=== PATIENT | male | born 1940 | race American Indian/Alaskan Native ===

== ENCOUNTER 2016-10-08 16:29 | Inpatient (IN) | payer MEDICARE ==
[2016-10-08 16:29] VITALS: BMI 23.1
[2016-10-08] MEDS ORDERED: Sodium Chloride 0.9% 500 ML IV STA (16:58)
--- NOTE | 2016-10-08 17:02 | ED PDOC ---
Arrival/HPI - General Chief Complaint: Female Genitourinary Time Seen by Provider: 10/08/16 16:52 Historian: Patient - History of Present Illness Narrative History of Present Illness (Text): 10/08/16 16:59 Patient with past medical history of hypertension and high cholesterol, reports 2 days of dysuria, urinary frequency, and feeling unwell. Otherwise: (-) cough, (-) sore throat, (-) URI symptoms, (-) headache, (-) dizziness, (-) SOB, (-) chest pain, (-) N/V/D, (-) abdominal pain, (-) flank pain, (-) urethral discharge, (-) recent travel, (-) sick contacts. Tony Poon Past Medical History - Provider Review Nursing Documentation Reviewed: Yes - Infectious Disease Hx of Infectious Diseases: None - Cardiac Hx Pacemaker: Yes (SINCE 2003) - Neurological Hx Paralysis: No - Hematological/Oncological Hx Blood Transfusions: No Hx Blood Transfusion Reaction: No - Psychiatric Hx Depression: No Hx Emotional Abuse: No Hx Physical Abuse: No Hx Substance Use: No - Surgical History Hx Coronary Stent: Yes (x1) - Anesthesia Hx Anesthesia: Yes Hx Anesthesia Reactions: No Hx Malignant Hyperthermia: No - Suicidal Assessment Feels Threatened In Home Enviroment: No Family/Social History - Physician Review Nursing Documentation Reviewed: Yes Family/Social History: No Known Family HX Smoking Status: Light Smoker < 10 Cigarettes Daily Hx Alcohol Use: No (ABUSE([facility]OT[facility]) QUIT 5 YRS AGO) Hx Substance Use: No Allergies/Home Meds Allergies/Adverse Reactions: Allergies No Known Allergies Allergy (Verified 10/08/16 16:45) Home Medications: Home Meds Medication Instructions Recorded Confirmed Albuterol HFA [Ventolin HFA 90 1 puff IH Q6 PRN 02/03/12 10/08/16 mcg/actuation (8 g)] Albuterol Sulfate/Ipratropiu 1 ea NEB Q6 02/03/12 10/08/16 [Ipratropium [place]/Albuterol Sulfate 3 mg/3 ] Aspirin [Ecotrin] 81 mg PO QAM 02/03/12 10/08/16 Atorvastatin Calcium 20 mg PO QAM 02/03/12 10/08/16 Cholecalciferol [Vitamin D] 2,000 iu PO DAILY 02/03/12 10/08/16 Hydrochlorothiazide/Valsarta 1 tab PO QAM 02/03/12 10/08/16 [Diovan Hct 12.5 mg-160 mg] Robert Lee-3/Dha/Epa/Fish Oil [Robert [place]-3 1 tab PO DAILY 02/03/12 10/08/16 Fish Oil 1,000 mg Sfgl] Vitamin B Complex 1 cap PO DAILY 02/03/12 10/08/16 Tamsulosin [Flomax] 0.4 mg PO QPM 03/25/13 10/08/16 Calcium Citrate 630 mg PO DAILY 01/23/15 10/08/16 Flunisolide [Aerospan] 2 puff IH BID 01/23/15 10/08/16 Spectravite 1 tab PO DAILY 01/23/15 10/08/16 Tiotropium [place] Inhaler 1 inhaler INH DAILY 01/23/15 10/08/16 [Spiriva Inhalation Handihaler Device] Review of Systems - Review of Systems Constitutional: Normal, Fatigue. absent: Weight Change, Fevers ENT: Normal. absent: Hearing Changes, Tinnitus, TMJ Pain Respiratory: Normal. absent: SOB, Cough, Sputum Cardiovascular: Normal. absent: Chest Pain, Palpitations, Edema Gastrointestinal: Normal. absent: Abdominal Pain, Stool Changes, Vomiting, Appetite Changes Genitourinary Male: Normal, Dysuria, Frequency. absent: Hematuria Musculoskeletal: Normal. absent: Arthralgias, Back Pain, Neck Pain Skin: Normal. absent: Rash, Pruritis, Skin Lesions, Laceration Neurological: Normal. absent: Headache, Dizziness, Focal Weakness Physical Exam - Physical Exam Narrative Physical Exam (Text): 10/08/16 17:01 GENERAL APPEARANCE: Patient is awake, alert, oriented x 3, in no acute distress. Patient appears well, ambulating in the ER, smiling. SKIN: Warm, dry; (-) cyanosis, (-) rash. (-) Decubitus Ulcer EYES: (-) conjunctival pallor, (-) scleral icterus, (-) conjunctival hemorrhage. ENMT: Mucous membranes moist. TMs: (-) erythema. Airway patent: (-) stridor. Pharynx: (-) erythema, (-) exudate. NECK: (-) tenderness, (-) stiffness, (-) meningismus, (-) lymphadenopathy. CHEST AND RESPIRATORY: (-) accessory muscle use. Lungs: (-) rales, (-) rhonchi, (-) wheezes, (-) rub; breath sounds equal bilaterally. HEART AND CARDIOVASCULAR: (-) irregularity; (-) murmur, (-) gallop, (-) rub. ABDOMEN AND GI: Soft; (-) tenderness, (-) guarding; (-) organomegaly; (-) mass ; (-) CVA tenderness. EXTREMITIES: (-) deformity; (-) cellulitis, (-) lymphangitis; (-) subungual hemorrhage; (-) edema. NEURO AND PSYCH: Mental status as above; (-) focal findings. Vital Signs Temp Pulse Resp BP Pulse Ox 10/08/16 18:29 99.1 F 73 20 147/74 10/08/16 16:41 100.1 F H 94 H 20 137/85 96 Medical Decision Making ED Course and Treatment: 10/08/16 17:02 76 yo M with past medical history of high cholesterol and hypertension, presents with 2 day history of dysuria, urinary frequency and "not feeling well. 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 Labs reviewed, WBC is 18, lactate 2.1. UA shows (+) UTI, rocephin 1 g IV ordered. Considering the labs and that the patient has an oral T of 100.1. Code sepsis is called. Due to patient's age, and the fact that the patient is not tachycardic or hypotensive, is hemodynamically stable, 30cc/kg bolus was not given at this time. Repeat VS: T (rectal) 99.1 P 73 BP 147/74 R 20. On re-evaluation, patient is laying comfortably in bed in no acute distress. Remains awake, alert and oriented x3. Patient notified of plan for further inpatient care, which the patient agrees to. Given the opportunity to ask questions. Case d/w medical office technologist and with Dr. Stafford, agrees with plan for inpatient tele admission. EKG: SR at 69 bpm with 1st degree AVB, RBBB, (-) acute ST changes, EKG appears unchanged from prior, as read by PA. - Lab Interpretations Lab Results: 10/08/16 17:00 10/08/16 17:00 Lab Results 10/08/16 18:15: Urine Color Yellow, Urine Appearance Sl cloudy, Urine pH 7.5, Ur Specific [place] 1.015, Urine Protein Trace H, Urine Glucose (UA) Negative, Urine Ketones Negative, Urine Blood Large H, Urine Nitrate Negative, Urine Bilirubin Negative, Urine Urobilinogen 0.2, Ur Leukocyte Esterase Small H, Urine RBC Tntc, Urine WBC 15 - 20, Ur Epithelial Cells 6 - 8, Urine Bacteria Mod 10/08/16 17:00: Sodium 134, Chloride 98, Potassium 5.0, Carbon Dioxide 29, Anion Gap 12, BUN 19, Creatinine 1.5 H, Est GFR ( Amer) 55, Est GFR (Non- Af Amer) 45, Random Glucose 95, Calcium 9.9, Total Bilirubin 1.9 H, AST 62 H, ALT 29, Alkaline Phosphatase 107, Total Protein 7.9, Albumin 4.3, Globulin 3.7, Albumin/Globulin Ratio 1.2 10/08/16 17:00: pO2 30, VBG pH 7.37, VBG pCO2 53.0, VBG HCO3 30.6 H, VBG Total CO2 32.2 H, VBG O2 Sat (Calc) 55.3, VBG Base Excess 4.0 H, VBG Potassium 4.3, Sodium 135.0, Chloride 101.0, Glucose 90, Lactate 2.1, FiO2 21.0, Venous Blood Potassium 4.3 10/08/16 17:00: WBC 18.8 H D, RBC 5.15, Hgb 12.6 L, Hct 36.2 L, MCV 70.3 L, MCH 24.5 L, MCHC 34.8, RDW 15.3 H, Plt Count 200, MPV 9.5, Gran % 83.0 H, Lymph % ( Auto) 11.2 L, [place] % (Auto) 5.6, Eos % (Auto) 0.1 L, Baso % (Auto) 0.1, Gran # 15.62 H, Lymph # 2.1, [place] # 1.1 H, Eos # 0.0, Baso # 0.02 - RAD Interpretation Radiology Orders: 10/08/16 17:50 CHEST TWO VIEWS (PA/LAT) [RAD] Stat - Medication Orders Current Medication Orders: Acetaminophen (Tylenol 325mg Tab) 650 mg PO Q6H PRN PRN Reason: Pain, Mild (1-3) Albuterol/Ipratropium (Duoneb 3 Mg/0.5 Mg (3 Ml) Ud) 3 ml IH Q2H PRN PRN Reason: Shortness of Breath Stop: 10/09/16 00:31 Aspirin (Ecotrin) 81 mg PO QAM [facility] Atorvastatin Calcium (Lipitor) 20 mg PO HS [facility] Cholecalciferol (Vitamin D) 2,000 iu PO DAILY [facility] Heparin Sodium (Porcine) (Heparin) 5,000 units SC Q12 [facility]Y PRN Reason: Protocol Sodium Chloride (Sodium Chloride 0.9%) 1,000 mls @ 100 mls/hr IV .Q10H [facility] Ceftriaxone Sodium (Rocephin 1 Gram Ivpb) 1 gm in 100 mls @ 100 mls/hr IVPB DAILY [facility]Y PRN Reason: Protocol Morphine Sulfate (Morphine) 2 mg IVP Q4 PRN PRN Reason: Pain, severe (8-10) Non-Formulary Medication (Calcium Citrate [Calcium Citrate]) [address] [facility] Non-Formulary Medication (Flunisolide [Aerospan]) 2 puff IH BID [facility] Non-Formulary Medication (Spectravite) [address] [facility] Whysk-2-Uxgi Ethyl Esters (Lovaza) [address] [facility] Pantoprazole Sodium (Protonix Ec Tab) 40 mg PO DAILY [facility] Tamsulosin HCl (Flomax) 0.[address] [facility] Tiotropium [place] (Spiriva) 18 mcg INH DAILY [facility] Vitamin B Complex/Vit C/Folic Acid (Nephro-Tenisha) 1 tab PO DAILY [facility] Discontinued Medications Sodium Chloride (Sodium Chloride 0.9%) 500 mls @ 500 mls/hr IV .Q1H STA Stop: 10/08/16 17:57 Last Admin: 10/08/16 17:27 Dose: 500 mls/hr Ceftriaxone Sodium (Rocephin 1 Gram Ivpb) 1 g in 100 mls @ 200 mls/hr IVPB STAT STA PRN Reason: Protocol Stop: 10/08/16 19:43 Last Admin: 10/08/16 19:31 Dose: 200 mls/hr - PA / [employer] / Resident Statement / has reviewed & agrees with the documentation as recorded. Disposition/Present on Arrival - Present on Arrival Any Indicators Present on Arrival: No History of DVT/PE: No History of Uncontrolled Diabetes: No Urinary Catheter: No History of Decub. Ulcer: No History Surgical Site Infection Following: None - Disposition Have Diagnosis and Disposition been Completed?: Yes Diagnosis: Sepsis, UTI (urinary tract infection) Disposition: HOSPITALIZED Disposition Time: 19:00 Patient Plan: Telemetry (admission) Patient Problems: Current Active Problems Problem Status Onset Sepsis Acute UTI (urinary tract infection) Acute Condition: STABLE
[2016-10-08 17:33] LABS: ADD MANUAL DIFF? NO
[2016-10-08 17:42] LABS: BASO # 0.02 K/mm3 (0.0-2.0); BASO % 0.1 % (0.0-3.0); EOS % 0.1 % (1.5-5.0); GRAN # 15.62 (1.4-6.5); HEMATOCRIT 36.2 % (42.0-52.0); LYMPH # 2.1 (1.2-3.4); LYMPH % 11.2 % (22.0-35.0); MEAN CELL VOLUME 70.3 fL (80.0-105.0); MEAN CORPUSCULAR HEMOGLOBIN 24.5 pg (25.0-35.0); MEAN CORPUSCULAR HGB CONC 34.8 g/dl (31.0-37.0); MEAN PLATELET VOLUME 9.5 fl (7.0-11.0); MONO # 1.1 (0.1-0.6); MONO % 5.6 % (1.0-6.0); PLATELET COUNT 200 10^3/uL (120.0-450.0); RED CELL DISTRIBUTION WIDTH 15.3 % (11.5-14.5); WHITE BLOOD COUNT 18.8 10^3/ul (4.5-11.0)
[2016-10-08 17:48] LABS: VENOUS BLOOD PH 7.37 (7.32-7.43)
[2016-10-08 17:49] LABS: ALB/GLOB RATIO 1.2 (1.1-1.8); BILIRUBIN,TOTAL 1.9 mg/dL (0.2-1.3); CALCIUM 9.9 mg/dL (8.4-10.5); TOTAL PROTEIN 7.9 g/dL (5.8-8.3)
[2016-10-08 19:00] LABS: PH,URINE 7.5 (4.7-8.0); URINE BILIRUBIN NEGATIVE (NEGATIVE); URINE BLOOD LARGE (NEGATIVE); URINE GLUCOSE (UA) NEGATIVE (NEGATIVE); URINE KETONE NEGATIVE (NEGATIVE); URINE LEUKOCYTE ESTERASE SMALL Leu/uL (NEGATIVE); URINE PROTEIN TRACE mg/dL (<30 mg/dL); URINE UROBILINOGEN 0.2 E.U./dL (<1 E.U./dL)
[2016-10-08 19:07] LABS: URINE APPEARANCE SL CLOUDY (CLEAR); URINE COLOR YELLOW (YELLOW)
[2016-10-08] MEDS ORDERED: cefTRIAXone 1 gm 1 G/100 ML BAG IVPB STA (19:14)
[2016-10-08 19:22] LABS: URINE BACTERIA MOD (NEG); URINE RBC TNTC /hpf (0-2); URINE WBC 15 - 20 /hpf (0-6)
[2016-10-08] MEDS ORDERED: Albuterol-Ipratrop 3 mg / 0.5 (3 ml) UD IH PRN (20:23)
[2016-10-08] MEDS ORDERED: Morphine 2 mg/ml ISec IVP PRN (20:25)
[2016-10-08] MEDS ORDERED: Sodium Chloride 0.9% 1,000 ML IV SCH (20:30)
[2016-10-08 20:34] LABS: VENOUS BLOOD GAS BASE EXCESS 4.1 mmol/L (0.0-2.0)
--- NOTE | 2016-10-08 21:31 | CP.PCM.HP ---
History of Present Illness - History of Present Illness History of Present Illness: History of Present Illness: The patient is a 76 year old man with a history of hypertension , BPH, dyslipidemia, COPD and coronary artery disease (s/p CABG, PCI and pacemaker in 2003), who presents with 2 days of dysuria, increased urinary frequency and generalized weakness and malaise. He denies fevers, chills, chest pain, shortness of breath, hematuria, cough or altered mental status. On ED labs , the patient was found to have a temperature of 100.1, a dirty UA, WBC=18 and lactic acid of 2.1. He has remained hemodynamically stable since arrival to the ED. Home Medications: Albuterol HFA 1 puff IH Q6hrs PRN Lipitor 20mg q daily ASA 81 mg q daily Aerospan 2puffs IH bid Vitamin D supplements Calcium Citrate 630mg po daily Diovan 12.5mg-160mg po daily Flomax 0.4mg po daily Spectravite 1 tab po daily Vit B complex 1 cap po daily Tiotropium 1 puff IH daily Allergies: NKDA Past Medical History: Per HPI Past Surgical History: CABG PCI Pacemaker placement Family History: Non-contributory Social History: Has smoked 1-1/2 PPD since 17 years old Previously was a heavy alcohol drinker but quit several years ago Denies illicit drug use Review of Systems: 14 bodily systems reviewed and found to be negative except as noted in the HPI -Patient also reports 2 days of constipation Present on Admission - Present on Admission Any Indicators Present on Admission: No Past Patient History - Infectious Disease Hx of Infectious Diseases: None - Past Social History Smoking Status: Light Smoker < 10 Cigarettes Daily - CARDIAC Hx Pacemaker: Yes (SINCE 2003) - NEUROLOGICAL Hx Paralysis: No - HEMATOLOGICAL/ONCOLOGICAL Hx Blood Transfusions: No Hx Blood Transfusion Reaction: No - PSYCHIATRIC Hx Depression: No Hx Emotional Abuse: No Hx Physical Abuse: No Hx Substance Use: No - SURGICAL HISTORY Hx Coronary Stent: Yes (x1) - ANESTHESIA Hx Anesthesia: Yes Hx Anesthesia Reactions: No Hx Malignant Hyperthermia: No Meds Allergies/Adverse Reactions: Allergies Allergy/AdvReac Type Severity Reaction Status Date / Time No Known Allergies Allergy Verified 10/08/16 16:45 Physical Exam - Constitutional Appears: Well - Head Exam Head Exam: ATRAUMATIC, NORMAL INSPECTION, NORMOCEPHALIC - Eye Exam Eye Exam: EOMI, Normal appearance, PERRL - ENT Exam ENT Exam: Mucous Membranes Dry - Neck Exam Neck exam: Positive for: Normal Inspection - Respiratory Exam Respiratory Exam: Clear to Auscultation Bilateral, NORMAL BREATHING PATTERN - Cardiovascular Exam Cardiovascular Exam: REGULAR RHYTHM - GI/Abdominal Exam GI & Abdominal Exam: Normal Bowel Sounds, Soft. absent: Tenderness - Rectal Exam Rectal Exam: Deferred - Extremities Exam Extremities exam: Positive for: normal inspection - Neurological Exam Neurological exam: Alert, CN II-XII Intact, Normal Gait, Oriented x3, Reflexes Normal Results - Vital Signs Recent Vital Signs: Last Vital Signs Temp 99.1 F 10/08/16 18:29 Pulse 73 10/08/16 18:29 Resp 20 10/08/16 18:29 BP 147/74 10/08/16 18:29 Pulse Ox 96 10/08/16 16:41 - Labs Result Diagrams: 10/08/16 17:00 10/08/16 17:00 Labs: Laboratory Results - last 24 hr 10/08/16 20:05 pO2 39 VBG pH 7.40 VBG pCO2 48.0 VBG HCO3 29.7 H VBG Total CO2 31.2 H VBG O2 Sat (Calc) 78.3 H VBG Base Excess 4.1 H VBG Potassium 4.2 Sodium 134.0 Chloride 100.0 Glucose 93 Lactate 1.4 FiO2 21.0 Venous Blood Potassium 4.2 Assessment & Plan - Assessment and Plan (Free Text) Plan: Assessment and Plan: The patient is a 76 year old man with a history of hypertension , BPH, dyslipidemia, COPD and coronary artery disease (s/p CABG, PCI and pacemaker), who presents with sepsis due to a UTI. 1. Sepsis: -due to UTI -hemodynamically stable -will start IVFs at 100cc/hr given cardiac history -empiric IV Ceftriaxone -follow-up blood and urine cultures -will order procalcitonin and repeat lactic acid 2. Urinary Tract Infection: -empiric IV Ceftriaxone -follow-up blood and urine cultures -NS at 100cc/hr 3. Acute Kidney Injury: -likely due to intravascular depletion -will hydrate with NS at 100cc/hr -recheck BMP with AM labs 4. Microcytic Anemia: -will order iron panel and ferritin with AM labs 5. Hypertension: -will hold all BP meds overnight since pt is septic 6. Coronary Artery Disease (s/p CABG, pacemaker and PCI): -continue home maintenance meds of lipitor and ASA -as stated above, will hold all BP meds overnight 7. COPD: -continue home maintenance inhalers -PRN Duo-nebs as needed -O2 via NC as needed 8. Dyslipidemia: -continue Lipitor 9. BPH: -continue Flomax DVT PPx: SCDs and SC Heparin GI PPx: Protonix
[2016-10-09] MEDS ORDERED: Albuterol-Ipratrop 3 mg / 0.5 (3 ml) UD IH PRN (01:02)
[2016-10-09 07:57] LABS: ADD MANUAL DIFF? NO
[2016-10-09 08:05] LABS: BASO # 0.02 K/mm3 (0.0-2.0); BASO % 0.1 % (0.0-3.0); EOS # 0.1 (0.0-0.7); EOS % 0.3 % (1.5-5.0); GRAN # 12.02 (1.4-6.5); GRAN % 82.9 % (50.0-68.0); HEMATOCRIT 31.6 % (42.0-52.0); LYMPH # 1.4 (1.2-3.4); LYMPH % 9.5 % (22.0-35.0); MEAN CELL VOLUME 69.9 fL (80.0-105.0); MEAN CORPUSCULAR HEMOGLOBIN 24.3 pg (25.0-35.0); MEAN CORPUSCULAR HGB CONC 34.8 g/dl (31.0-37.0); MEAN PLATELET VOLUME 9.5 fl (7.0-11.0); MONO % 7.2 % (1.0-6.0); PLATELET COUNT 184 10^3/uL (120.0-450.0); RED CELL DISTRIBUTION WIDTH 15.1 % (11.5-14.5); WHITE BLOOD COUNT 14.5 10^3/ul (4.5-11.0)
[2016-10-09 08:19] LABS: ALB/GLOB RATIO 1.1 (1.1-1.8); ALKALINE PHOSPHATASE 91 U/L (38-133); ALT/SGPT 29 U/L (7-56); AST/SGOT 35 U/L (15-59); BILIRUBIN,TOTAL 0.8 mg/dL (0.2-1.3); BLOOD UREA NITROGEN 20 mg/dL (7-21); CALCIUM 8.8 mg/dL (8.4-10.5); CARBON DIOXIDE 26 mmol/L (21-33); CHLORIDE 101 mmol/L (98-107); GFR AFRICAN-AMERICAN > 60; GLUCOSE,RANDOM 74 mg/dL (70-110); MAGNESIUM 1.7 mg/dL (1.7-2.2); POTASSIUM 4.1 mmol/L (3.6-5.0); SODIUM 133 mmol/L (132-148); TOTAL PROTEIN 6.5 g/dL (5.8-8.3)
--- NOTE | 2016-10-09 08:20 | RAD ---
HISTORY: malaise COMPARISON: No prior. TECHNIQUE: Chest PA and lateral FINDINGS: LUNGS: No active pulmonary disease. PLEURA: No significant pleural effusion identified. No pneumothorax apparent. CARDIOVASCULAR: Normal. Pacemaker and leads in place. OSSEOUS STRUCTURES: No significant abnormalities. VISUALIZED UPPER ABDOMEN: Normal. OTHER FINDINGS: None. IMPRESSION: No active disease.
[2016-10-09 08:27] LABS: IRON 12 ug/dL (45-180)
[2016-10-09] MEDS ORDERED: Sodium Chloride 0.9% 1,000 ML IV SCH (08:59)
[2016-10-09] MEDS: Pantoprazole 40 mg EC Tab PO SCH (09:55)
[2016-10-09] MEDS: Multivitamin Vitamin B Complex (Nephro-Vite) Tab PO SCH (09:55)
[2016-10-09] MEDS: cefTRIAXone 1 gm 1 GM/100 ML BAG IVPB SCH (09:56)
[2016-10-09] MEDS: Omega-3-Acid Ethyl Esters 1 GM Cap PO SCH (09:58)
[2016-10-09] MEDS: CALCIUM CITRATE PO SCH (10:02)
[2016-10-09] MEDS: FLUNISOLIDE IH SCH ×2 (10:03→18:21)
[2016-10-09] MEDS: SPECTRAVITE PO SCH (10:03)
[2016-10-09] MEDS: Tiotropium 18 mcg Cap For Inhalation INH SCH (15:12)
--- NOTE | 2016-10-09 18:29 | CP.PCM.PN ---
Addendum entered and electronically signed by Adrianna Erazo DO 10/09/16 19:22: bladder U/S ordered due to hematuria/dysuria Addendum entered and electronically signed by Adrianna Erazo DO 10/09/16 19:20: NS IV discontinued due to increasing blood pressure. Original Note: <Adrianna Erazo - Last Filed: 10/09/16 19:13> Subjective - Date & Time of Evaluation Date of Evaluation: 10/09/16 Time of Evaluation: 11:00 - Subjective Subjective: Pt seen and evaluated at bedside. Denies fever, REAVES and continues to have dysuria. Afebrile overnight with Tmax of 100.1, his initial presenting temperature. Objective - Vital Signs/Intake and Output Vital Signs (last 24 hours): Temp Pulse Resp BP Pulse Ox 99.2 F 68 16 178/88 H 98 10/09/16 18:04 10/09/16 18:04 10/09/16 18:04 10/09/16 18:04 10/09/16 05:56 Intake and Output: 10/09/16 10/09/16 06:59 18:59 Intake Total 1400 Output Total 1500 Balance -100 - Medications Medications: Current Medications Acetaminophen (Tylenol 325mg Tab) 650 mg PO Q6H PRN PRN Reason: Pain, Mild (1-3) Albuterol/Ipratropium (Duoneb 3 Mg/0.5 Mg (3 Ml) Ud) 3 ml IH Q2H PRN PRN Reason: Shortness of Breath Aspirin (Ecotrin) 81 mg PO QAM ON LICENSE OF [facility] Last Admin: 10/09/16 09:55 Dose: 81 mg Atorvastatin Calcium (Lipitor) 20 mg PO HS ON LICENSE OF [facility] Cholecalciferol (Vitamin D) 2,000 iu PO DAILY ON LICENSE OF [facility] Last Admin: 10/09/16 09:55 Dose: 2,000 iu Heparin Sodium (Porcine) (Heparin) 5,000 units SC Q12 [facility]Y PRN Reason: Protocol Last Admin: 10/08/16 23:25 Dose: 5,000 units Ceftriaxone Sodium (Rocephin 1 Gram Ivpb) 1 gm in 100 mls @ 100 mls/hr IVPB DAILY ON [facility] OF [facility] PRN Reason: Protocol Last Admin: 10/09/16 09:56 Dose: 100 mls/hr Sodium Chloride (Sodium Chloride 0.9%) 1,000 mls @ 75 mls/hr IV [id number] ON LICENSE OF [facility] Last Admin: 10/09/16 09:56 Dose: 75 mls/hr Morphine Sulfate (Morphine) 2 mg IVP Q4 PRN PRN Reason: Pain, severe (8-10) Non-Formulary Medication (Calcium Citrate [Calcium Citrate]) 630 mg PO DAILY ON [facility] OF [facility] Last Admin: 10/09/16 10:02 Dose: Not Given Non-Formulary Medication (Flunisolide [Aerospan]) 2 puff IH BID ON LICENSE OF [facility] Last Admin: 10/09/16 18:21 Dose: Not Given Non-Formulary Medication (Spectravite) 1 tab PO DAILY ON [facility] OF [facility] Last Admin: 10/09/16 10:03 Dose: Not Given Oxxgz-[id number] Ethyl Esters (Lovaza) 1 gm PO DAILY ON [facility] Last Admin: 10/09/16 09:58 Dose: 1 gm Pantoprazole Sodium (Protonix Ec Tab) 40 mg PO DAILY ON [facility] OF [facility] Last Admin: 10/09/16 09:55 Dose: 40 mg Tamsulosin HCl (Flomax) 0.4 mg PO QPM ON LICENSE OF [facility] Last Admin: 10/09/16 17:25 Dose: 0.4 mg Tiotropium [place] (Spiriva) 18 mcg INH DAILY ON LICENSE OF [facility] Last Admin: 10/09/16 15:12 Dose: 18 mcg Vitamin B Complex/Vit C/Folic Acid (Nephro-Tenisha) 1 tab PO DAILY ON LICENSE OF [facility] Last Admin: 10/09/16 09:55 Dose: 1 tab - Labs Labs: 10/09/16 07:54 10/09/16 07:54 - Additional Findings Additional findings: - Constitutional Appears: Well, Non-toxic - Head Exam Head Exam: ATRAUMATIC, NORMOCEPHALIC - Eye Exam Eye Exam: EOMI, PERRL - ENT Exam ENT Exam: Mucous Membranes Dry, normal external ear exam - Respiratory Exam Respiratory Exam: Clear to Auscultation Bilateral, NORMAL BREATHING PATTERN - Cardiovascular Exam Cardiovascular Exam: REGULAR RHYTHM, +S1, +S2 - External Exam External Exam: no lesions, no erythema - GI/Abdominal Exam GI & Abdominal Exam: Normal Bowel Sounds, Soft. absent: Tenderness - Extremities Exam Extremities exam: Positive for: normal inspection, pedal pulses appreciated - Neurological Exam Neurological exam: Alert, Oriented x3 Assessment and Plan - Assessment and Plan (Free Text) Plan: 76 year old man with a history of hypertension, BPH, dyslipidemia, COPD and coronary artery disease (s/p CABG, PCI and pacemaker), who presents with sepsis due to a UTI. Sepsis 2/2 UTI -hemodynamically stable -IVFs at 60 cc/hr given cardiac history -empiric IV Ceftriaxone -blood cx neg at 24 hrs and urine cx pending with G- rods -procalcitonin neg (.39) and repeat lactic acid downtrend and wnl (2.1-->1.4) 2. Urinary Tract Infection: -empiric IV Ceftriaxone blood cx neg at 24 hrs and urine cx pending with G- rods -NS at 60cc/hr 3. Acute Kidney Injury: -likely due to intravascular depletion -will hydrate with NS at 60cc/hr -recheck BMP with AM labs 4. Microcytic Anemia: -anemia of chronic disease, Fe 12, tibc 254, %sat 5,and ferritin 116. 5. Hypertension: 6. Coronary Artery Disease (s/p CABG, pacemaker and PCI): -continue home maintenance meds of lipitor and ASA restarting home valsartan 160 qd next am 7. COPD: -continue home maintenance inhalers -PRN Duo-nebs as needed -O2 via NC as needed 8. Dyslipidemia: continue Lipitor 9. BPH: continue Flomax DVT PPx: SCDs and SC Heparin , GI PPx: Protonix <Meera Khalil - Last Filed: 10/10/16 17:47> Objective - Vital Signs/Intake and Output Vital Signs (last 24 hours): Temp Pulse Resp BP Pulse Ox 98.6 F 91 H 18 121/79 98 10/10/16 16:00 10/10/16 16:00 10/10/16 16:00 10/10/16 16:00 10/10/16 16:00 Intake and Output: 10/10/16 10/10/16 06:59 18:59 Intake Total 700 Output Total 1974 300 Balance -1974 - Medications Medications: Current Medications Acetaminophen (Tylenol 325mg Tab) 650 mg PO Q6H PRN PRN Reason: Pain, Mild (1-3) Albuterol/Ipratropium (Duoneb 3 Mg/0.5 Mg (3 Ml) Ud) 3 ml IH Q2H PRN PRN Reason: Shortness of Breath Aspirin (Ecotrin) 81 mg PO QAM ON [facility] OF [facility] Last Admin: 10/10/16 11:38 Dose: 81 mg Atorvastatin Calcium (Lipitor) 20 mg PO HS ON [facility] Last Admin: 10/09/16 21:43 Dose: 20 mg Cholecalciferol (Vitamin D) 2,000 iu PO DAILY ON [facility] OF [facility] Last Admin: 10/10/16 11:38 Dose: 2,000 iu Ferrous Sulfate (Feosol) 324 mg PO TID ON LICENSE OF [facility] Last Admin: 10/10/16 11:38 Dose: 324 mg Heparin Sodium (Porcine) (Heparin) 5,000 units SC Q12 ON LICENSE OF [facility] PRN Reason: Protocol Last Admin: 10/08/16 23:25 Dose: 5,000 units Ceftriaxone Sodium (Rocephin 1 Gram Ivpb) 1 gm in 100 mls @ 100 mls/hr IVPB DAILY ON [facility] PRN Reason: Protocol Last Admin: 10/09/16 09:56 Dose: 100 mls/hr Losartan Potassium (Cozaar) 100 mg PO DAILY ON [facility] Last Admin: 10/10/16 11:37 Dose: 100 mg Morphine Sulfate (Morphine) 2 mg IVP Q4 PRN PRN Reason: Pain, severe (8-10) Non-Formulary Medication (Calcium Citrate [Calcium Citrate]) 630 mg PO DAILY ON [facility] Last Admin: 10/10/16 10:00 Dose: Not Given Non-Formulary Medication (Flunisolide [Aerospan]) 2 puff IH BID ON LICENSE OF [facility] Last Admin: 10/10/16 10:00 Dose: Not Given Non-Formulary Medication (Spectravite) 1 tab PO DAILY ON [facility] Last Admin: 10/10/16 10:00 Dose: Not Given Foxap-1-Qnhm Ethyl Esters (Lovaza) 1 gm PO DAILY ON [facility] Last Admin: 10/09/16 09:58 Dose: 1 gm Pantoprazole Sodium (Protonix Ec Tab) 40 mg PO DAILY ON [facility] Last Admin: 10/10/16 10:00 Dose: 40 mg Tamsulosin HCl (Flomax) 0.4 mg PO QPM ON LICENSE OF [facility] Last Admin: 10/09/16 17:25 Dose: 0.4 mg Tiotropium [place] (Spiriva) 18 mcg INH DAILY ON [facility] OF [facility] Last Admin: 10/09/16 15:12 Dose: 18 mcg Vitamin B Complex/Vit C/Folic Acid (Nephro-Tenisha) 1 tab PO DAILY ON [facility] OF [facility] Last Admin: 10/10/16 10:00 Dose: 1 tab - Labs Labs: 10/10/16 07:00 10/10/16 07:00 Attending/Attestation - Attestation I have personally seen and examined this patient.: Yes I have fully participated in the care of the patient.: Yes I have reviewed all pertinent clinical information, including history, physical exam and plan: Yes Notes (Text): 10/10/16 17:46 Patient seen and examined at bedside with the resident. Labs, vitals, notes reviewed. Denies any new complaints. Urology consult requested for mild hematuria. Continue IV antibiotics for UTI. Reviewed and agree with the plan of care outlined above by the resident
--- NOTE | 2016-10-09 18:53 | CARD ---
APPROVED REPORT EKG Measurement Heart [id number] MD 322P [id number] <Conclusion> Sinus rhythm with 1st degree AV block Right bundle branch block Left anterior fascicular block Bifascicular block Anteroseptal infarct, age undetermined Abnormal ECG
[2016-10-10 07:24] LABS: ADD MANUAL DIFF? NO
[2016-10-10 07:34] LABS: BASO # 0.01 K/mm3 (0.0-2.0); BASO % 0.1 % (0.0-3.0); EOS # 0.1 (0.0-0.7); EOS % 0.7 % (1.5-5.0); GRAN # 5.37 (1.4-6.5); HEMATOCRIT 31.1 % (42.0-52.0); LYMPH # 1.2 (1.2-3.4); LYMPH % 16.7 % (22.0-35.0); MEAN CELL VOLUME 69.6 fL (80.0-105.0); MEAN CORPUSCULAR HEMOGLOBIN 23.9 pg (25.0-35.0); MEAN CORPUSCULAR HGB CONC 34.4 g/dl (31.0-37.0); MEAN PLATELET VOLUME 9.4 fl (7.0-11.0); MONO # 0.5 (0.1-0.6); MONO % 7.5 % (1.0-6.0); PLATELET COUNT 188 10^3/uL (120.0-450.0); RED CELL DISTRIBUTION WIDTH 14.8 % (11.5-14.5); WHITE BLOOD COUNT 7.2 10^3/ul (4.5-11.0)
[2016-10-10 07:45] LABS: BILIRUBIN,TOTAL 0.7 mg/dL (0.2-1.3); CALCIUM 8.8 mg/dL (8.4-10.5); MAGNESIUM 1.7 mg/dL (1.7-2.2); PHOSPHOROUS 2.7 mg/dL (2.5-4.5); POTASSIUM 4.1 mmol/L (3.6-5.0); TOTAL PROTEIN 6.4 g/dL (5.8-8.3)
[2016-10-10] MEDS: SPECTRAVITE PO SCH (10:00)
[2016-10-10] MEDS: CALCIUM CITRATE PO SCH (10:00)
[2016-10-10] MEDS: Pantoprazole 40 mg EC Tab PO SCH (10:00)
[2016-10-10] MEDS: Multivitamin Vitamin B Complex (Nephro-Vite) Tab PO SCH (10:00)
[2016-10-10] MEDS: Omega-3-Acid Ethyl Esters 1 GM Cap PO SCH (10:00)
[2016-10-10] MEDS: cefTRIAXone 1 gm 1 GM/100 ML BAG IVPB SCH (10:00)
[2016-10-10] MEDS: FLUNISOLIDE IH SCH (10:00)
[2016-10-10] MEDS: Tiotropium 18 mcg Cap For Inhalation INH SCH (10:00)
--- NOTE | 2016-10-10 11:19 | CP.PCM.PN ---
<Steve Benz - Last Filed: 10/10/16 11:21> Subjective - Date & Time of Evaluation Date of Evaluation: 10/10/16 Time of Evaluation: 11:00 - Subjective Subjective: Medicine progress note. Attending: Dr. Maravilla Pt seen and examined at bedside. No acute distress. No events overnight. Pt still having some hematuria, dysuria. Urology workup in progress. Bladder scan pending. No fevers, chills, vomiting, diarrhea. Objective - Vital Signs/Intake and Output Vital Signs (last 24 hours): Temp Pulse Resp BP Pulse Ox 99.8 F H 63 19 137/71 95 10/10/16 08:13 10/10/16 08:13 10/10/16 08:13 10/10/16 08:13 10/10/16 08:13 Intake and Output: 10/10/16 10/10/16 06:59 18:59 Output Total 1975 Balance -1974 - Medications Medications: Current Medications Acetaminophen (Tylenol 325mg Tab) 650 mg PO Q6H PRN PRN Reason: Pain, Mild (1-3) Albuterol/Ipratropium (Duoneb 3 Mg/0.5 Mg (3 Ml) Ud) 3 ml IH Q2H PRN PRN Reason: Shortness of Breath Aspirin (Ecotrin) 81 mg PO QAM [facility] Last Admin: 10/09/16 09:55 Dose: 81 mg Atorvastatin Calcium (Lipitor) 20 mg PO HS [facility] Last Admin: 10/09/16 21:43 Dose: 20 mg Cholecalciferol (Vitamin D) 2,000 iu PO DAILY [facility] Last Admin: 10/09/16 09:55 Dose: 2,000 iu Ferrous Sulfate (Feosol) 324 mg PO TID [facility] Heparin Sodium (Porcine) (Heparin) 5,000 units SC Q12 CURLY PRN Reason: Protocol Last Admin: 10/08/16 23:25 Dose: 5,000 units Ceftriaxone Sodium (Rocephin 1 Gram Ivpb) 1 gm in 100 mls @ 100 mls/hr IVPB DAILY [facility] PRN Reason: Protocol Last Admin: 10/09/16 09:56 Dose: 100 mls/hr Losartan Potassium (Cozaar) 100 mg PO DAILY [facility] Morphine Sulfate (Morphine) 2 mg IVP Q4 PRN PRN Reason: Pain, severe (8-10) Non-Formulary Medication (Calcium Citrate [Calcium Citrate]) 630 mg PO DAILY [facility] Last Admin: 10/09/16 10:02 Dose: Not Given Non-Formulary Medication (Flunisolide [Aerospan]) 2 puff IH BID [facility] Last Admin: 10/09/16 18:21 Dose: Not Given Non-Formulary Medication (Spectravite) 1 tab PO DAILY [facility] Last Admin: 10/09/16 10:03 Dose: Not Given Hepiy-3-Tmoo Ethyl Esters (Lovaza) 1 gm PO DAILY [facility] Last Admin: 10/09/16 09:58 Dose: 1 gm Pantoprazole Sodium (Protonix Ec Tab) 40 mg PO DAILY [facility] Last Admin: 10/09/16 09:55 Dose: 40 mg Tamsulosin HCl (Flomax) 0.4 mg PO QPM [facility] Last Admin: 10/09/16 17:25 Dose: 0.4 mg Tiotropium Hutchinson (Spiriva) 18 mcg INH DAILY [facility] Last Admin: 10/09/16 15:12 Dose: 18 mcg Vitamin B Complex/Vit C/Folic Acid (Nephro-Tenisha) 1 tab PO DAILY [facility] Last Admin: 10/09/16 09:55 Dose: 1 tab - Labs Labs: 10/10/16 07:00 10/10/16 07:00 - Constitutional Appears: Non-toxic, No Acute Distress - Head Exam Head Exam: ATRAUMATIC, NORMAL INSPECTION, NORMOCEPHALIC - Eye Exam Eye Exam: EOMI - ENT Exam ENT Exam: Mucous Membranes Moist - Neck Exam Neck Exam: Full ROM, Normal Inspection - Respiratory Exam Respiratory Exam: NORMAL BREATHING PATTERN. absent: Respiratory Distress - Cardiovascular Exam Cardiovascular Exam: +S1, +S2 - GI/Abdominal Exam GI & Abdominal Exam: Soft, Normal Bowel Sounds. absent: Tenderness - Extremities Exam Extremities Exam: Full ROM, Normal Inspection - Neurological Exam Neurological Exam: Alert, Awake, Oriented x3 - Psychiatric Exam Psychiatric exam: Normal Affect, Normal Mood - Skin Skin Exam: Dry, Intact, Normal Color, Warm Assessment and Plan - Assessment and Plan (Free Text) Assessment: 76 year old man with a history of hypertension, BPH, dyslipidemia, COPD and coronary artery disease (s/p CABG, PCI and pacemaker), who presents with sepsis due to a UTI. Sepsis 2/2 UTI -hemodynamically stable -IVFs at 60 cc/hr given cardiac history >> stopped -empiric IV Ceftriaxone 1 g daily -blood cx neg at 24 hrs and urine cx showing E coli -procalcitonin neg (.39) and repeat lactic acid downtrend and wnl (2.1-->1.4) -urology workup in progress -bladder scan pending 2. Urinary Tract Infection: -empiric IV Ceftriaxone blood cx neg at 24 hrs and urine cx e coli -NS at 60cc/hr>> stopped 3. Acute Kidney Injury: -likely due to intravascular depletion -recheck BMP with AM labs 4. Microcytic Anemia: -anemia of chronic disease, Fe 12, tibc 254, %sat 5,and ferritin 116. -continue feosol 324 tid po 5. Hypertension: -continue losartan 100 daily 6. Coronary Artery Disease (s/p CABG, pacemaker and PCI): -continue home maintenance meds of lipitor and ASA -continue losartan 100 daily 7. COPD: -continue home maintenance inhalers -PRN Duo-nebs as needed -O2 via NC as needed 8. Dyslipidemia: continue Lipitor 9. BPH: continue Flomax DVT PPx: SCDs and SC Heparin , GI PPx: Protonix <Troy Maravilla - Last Filed: 10/11/16 09:04> Objective - Vital Signs/Intake and Output Vital Signs (last 24 hours): Temp Pulse Resp BP Pulse Ox 98.6 F 91 H 18 121/79 98 10/10/16 16:00 10/10/16 16:00 10/10/16 16:00 10/10/16 16:00 10/10/16 16:00 - Labs Labs: 10/10/16 07:00 10/10/16 07:00 Attending/Attestation - Attestation I have personally seen and examined this patient.: Yes I have fully participated in the care of the patient.: Yes I have reviewed all pertinent clinical information, including history, physical exam and plan: Yes Notes (Text): 10/10/16 76 year old male with past medical history of hypertension, BPH, COPD and CAD who presented with sepsis secondary to UTI. He complained of dysuria and hematuria. He was started on antibiotics with improvement of symptoms. He had mild LUIS ARMANDO which improved with fluids. He was seen by urology who ordered to d/c micky and ordered for renal ultrasound which showed simple renal cyst. UCx grew E coli. He was found to have mild microcytic iron deficiency anemia and started on iron supplements. Patient will be discharged home to follow up with pmd and urologist. Continue with po antibiotics as prescribed. Recommend to repeat UA and cbc 1 week after completing antibiotics for UTI. If persistent hematuria follow up with urology. If persistent anemia without hematuria consider outpatient GI evaluation. Troy Maravilla MD Hospitalist.
--- NOTE | 2016-10-10 13:10 | CON ---
DATE: 10/10/2016 CHIEF COMPLAINT: Urinary tract infection. HISTORY OF PRESENT ILLNESS: A 76-year-old man who complained of burning dysuria, fever, chills, temp erature of 100.1. His urine grew an E. coli. He was unable to void in the ER so a Sanches catheter wa s placed. There is no record of the amount of pain. According to the patient, he voided well prior to coming to the ER with voiding good stream and had some type of urologic procedure approximately 3 years ago. He was not on any BPH meds. PAST MEDICAL HISTORY: Significant for COPD. He has a pacemaker in place. MEDICATIONS: He takes Diovan along with his inhalers. ALLERGIES: He has no allergies. He has had a prior CABG as well. SOCIAL HISTORY: He still smokes approximately a pack per day for almost 55-60 years. He no longer d rinks, was a heavy alcohol consumer in the past. REVIEW OF SYMPTOMS: Currently no symptoms referable to the head, eyes, ears, nose or throat. No car diac, respiratory symptoms. Some mild constipation. No dermatologic, psychiatric symptoms. No musc uloskeletal symptoms. PHYSICAL EXAMINATION: VITAL SIGNS: Shows him to be with a temperature of 99.8, pulse 63, blood pressure 137/71, respiratio ns 19. HEENT: Normocephalic, sclera clear, conjunctiva noninjected. ABDOMEN: Soft. No CVA pain. No hepatosplenomegaly, rebound or guarding. GENITALIA: Penis, testicle, cord, epididymis all normal. RECTAL: Shows the prostate to be 2+ benign with no tenderness, nodularity or induration. GENITOURINARY: Sanches catheter is draining marcy urine. SKIN: No purpura or edema. LABORATORY WORK: Shows a white count of 7200. His creatinine is 1.4 with a BUN of 21. His urine cu lture grew an E. coli sensitive to Rocephin, which he is on. IMPRESSION: Escherichia coli urinary tract infection. I have ordered a renal ultrasound. I am disc ontinuing the Sanches catheter and the nurses were told to check a bladder ultrasound for residual and record the amount. He was told to follow up with either his previous urologist or us or any urologis t of his choosing. I canceled a bladder ultrasound, which was ordered. I do not think it offers any thing and I told him to unclamp his Sanches catheter, which they were doing in preparation for the blad remi ultrasound. The ultrasound should be done after the Sanches is out and he voids to check his resid ual. The patient is aware of the plan as are the nurses and if he is voiding well with minimal resid ual, he can be discharged when afebrile and follow up with the urologist of his choosing. Harshil Arceo MD cc: [phone] TT: 10/10/2016 13:10:12 Confirmation # [id number] Dictation # [id number] sn
--- NOTE | 2016-10-10 14:04 | US ---
PROCEDURE: Ultrasound of the Kidneys HISTORY: UTI COMPARISON: CT abdomen and pelvis from 02/12/2016. TECHNIQUE: Grayscale imaging was performed. FINDINGS: RIGHT KIDNEY: Measures: 10.6 cm. Normal in size, contour and echogenicity. No stone, solid mass lesion or hydronephrosis visualized. LEFT KIDNEY: Measures: 10.9 cm. Normal in size, contour and echogenicity. No stone, solid mass lesion or hydronephrosis visualized. There is a 2.3 x 2.0 x 2.2 cm simple cyst in the interpolar region. OTHER FINDINGS: None. IMPRESSION: No nephrolithiasis, hydronephrosis or solid mass.
[2016-10-10 17:15] VITALS: BP 121/79; PULSE 91; RESP 18; TEMP 98.6; O2SAT 98
--- NOTE | 2016-10-13 15:01 | CP.PCM.DIS ---
<Steve Benz - Last Filed: 10/13/16 15:09> Provider - Provider Date of Admission: 10/08/16 19:35 Attending physician: Troy Maravilla MD Primary care physician: Tony Galicia MD Consults: 1. Urology- Hematuria Time Spent in preparation of Discharge (in minutes): 45 Hospital Course - Lab Results Lab Results: Most Recent Lab Values WBC 7.2 10^3/ul (4.5-11.0) D 10/10/16 07:00 RBC 4.47 10^6/uL (3.5-6.1) 10/10/16 07:00 Hgb 10.7 gm/dL (14.0-18.0) L 10/10/16 07:00 Hct 31.1 % (42.0-52.0) L 10/10/16 07:00 MCV 69.6 fL (80.0-105.0) L 10/10/16 07:00 MCH 23.9 pg (25.0-35.0) L 10/10/16 07:00 MCHC 34.4 g/dl (31.0-37.0) 10/10/16 07:00 RDW 14.8 % (11.5-14.5) H 10/10/16 07:00 Plt Count 188 10^3/uL (120.0-450.0) 10/10/16 07:00 MPV 9.4 fl (7.0-11.0) 10/10/16 07:00 Gran % 75.0 % (50.0-68.0) H 10/10/16 07:00 Lymph % (Auto) 16.7 % (22.0-35.0) L 10/10/16 07:00 Smyth % (Auto) 7.5 % (1.0-6.0) H 10/10/16 07:00 Eos % (Auto) 0.7 % (1.5-5.0) L 10/10/16 07:00 Baso % (Auto) 0.1 % (0.0-3.0) 10/10/16 07:00 Gran # 5.37 (1.4-6.5) 10/10/16 07:00 Lymph # 1.2 (1.2-3.4) 10/10/16 07:00 Smyth # 0.5 (0.1-0.6) 10/10/16 07:00 Eos # 0.1 (0.0-0.7) 10/10/16 07:00 Baso # 0.01 K/mm3 (0.0-2.0) 10/10/16 07:00 pO2 39 mm/Hg (30-55) 10/08/16 20:05 VBG pH 7.40 (7.32-7.43) 10/08/16 20:05 VBG pCO2 48.0 (40-60) 10/08/16 20:05 VBG HCO3 29.7 mmol/l (21-28) H 10/08/16 20:05 VBG Total CO2 31.2 mmol.L (22-28) H 10/08/16 20:05 VBG O2 Sat (Calc) 78.3 % (40-65) H 10/08/16 20:05 VBG Base Excess 4.1 mmol/L (0.0-2.0) H 10/08/16 20:05 VBG Potassium 4.2 mmol/L (3.6-5.2) 10/08/16 20:05 Sodium 134.0 mmol/L (132-148) 10/08/16 20:05 Chloride 100.0 mmol/L (98-107) 10/08/16 20:05 Glucose 93 mg/dl (75-110) 10/08/16 20:05 Lactate 1.4 mmol/L (0.7-2.1) 10/08/16 20:05 FiO2 21.0 % 10/08/16 20:05 Sodium 132 mmol/L (132-148) 10/10/16 07:00 Potassium 4.1 mmol/L (3.6-5.0) 10/10/16 07:00 Chloride 100 mmol/L (98-107) 10/10/16 07:00 Carbon Dioxide 27 mmol/L (21-33) 10/10/16 07:00 Anion Gap 9 (10-20) L 10/10/16 07:00 BUN 21 mg/dL (7-21) 10/10/16 07:00 Creatinine 1.4 mg/dL (0.5-1.4) 10/10/16 07:00 Est GFR ( Amer) 59 10/10/16 07:00 Est GFR (Non-Af Amer) 49 10/10/16 07:00 Random Glucose 102 mg/dL (70-110) 10/10/16 07:00 Lactic Acid 1.4 mmol/L (0.7-2.1) 10/08/16 22:00 Calcium 8.8 mg/dL (8.4-10.5) 10/10/16 07:00 Phosphorus 2.7 mg/dL (2.5-4.5) 10/10/16 07:00 Magnesium 1.7 mg/dL (1.7-2.2) 10/10/16 07:00 Iron 12 ug/dL (45-180) L 10/09/16 07:54 TIBC 254 ug/dL (261-462) L 10/09/16 07:54 % Saturation 5 % (20-55) L 10/09/16 07:54 Ferritin 116.0 ng/mL 10/09/16 07:54 Total Bilirubin 0.7 mg/dL (0.2-1.3) 10/10/16 07:00 AST 40 U/L (15-59) 10/10/16 07:00 ALT 30 U/L (7-56) 10/10/16 07:00 Alkaline Phosphatase 78 U/L (38-133) 10/10/16 07:00 Total Protein 6.4 g/dL (5.8-8.3) 10/10/16 07:00 Albumin 3.2 g/dL (3.0-4.8) 10/10/16 07:00 Globulin 3.2 gm/dL 10/10/16 07:00 Albumin/Globulin Ratio 1.0 (1.1-1.8) L 10/10/16 07:00 Procalcitonin 0.39 NG/ML (0.19-0.49) 10/08/16 17:00 Venous Blood Potassium 4.2 mmol/L (3.6-5.2) 10/08/16 20:05 Urine Color Yellow (YELLOW) 10/08/16 18:15 Urine Appearance Sl cloudy (CLEAR) 10/08/16 18:15 Urine pH 7.5 (4.7-8.0) 10/08/16 18:15 Ur Specific Maidens 1.015 (1.005-1.035) 10/08/16 18:15 Urine Protein Trace mg/dL (<30 mg/dL) H 10/08/16 18:15 Urine Glucose (UA) Negative mg/dL (NEGATIVE) 10/08/16 18:15 Urine Ketones Negative mg/dL (NEGATIVE) 10/08/16 18:15 Urine Blood Large (NEGATIVE) H 10/08/16 18:15 Urine Nitrate Negative (NEGATIVE) 10/08/16 18:15 Urine Bilirubin Negative (NEGATIVE) 10/08/16 18:15 Urine Urobilinogen 0.2 E.U./dL (<1 E.U./dL) 10/08/16 18:15 Ur Leukocyte Esterase Small Tino/uL (NEGATIVE) H 10/08/16 18:15 Urine RBC Tntc /hpf (0-2) 10/08/16 18:15 Urine WBC 15 - 20 /hpf (0-6) 10/08/16 18:15 Ur Epithelial Cells 6 - 8 /hpf (0-5) 10/08/16 18:15 Urine Bacteria Mod (NEG) 10/08/16 18:15 - Hospital Course Hospital Course: Attending: Dr. Maravilla Admit date- 10/08/16 DC date: 10/10/16 Stable for dc Consults Urology- Adis No complications HPI: see h/p Labs: see lab data Hospital course: The patient is a 76 year old man with a history of hypertension , BPH, dyslipidemia, COPD and coronary artery disease (s/p CABG, PCI and pacemaker in 2003), who presents with 2 days of dysuria, increased urinary frequency and generalized weakness and malaise. He denies fevers, chills, chest pain, shortness of breath, hematuria, cough or altered mental status. On ED labs , the patient was found to have a temperature of 100.1, a dirty UA, WBC=18 and lactic acid of 2.1. He remained hemodynamically stable since arrival to the ED. Sepsis 2/2 UTI -hemodynamically stable -IVFs at 60 cc/hr given cardiac history >> stopped -empiric IV Ceftriaxone 1 g daily -blood cx neg at 24 hrs and urine cx showing E coli -procalcitonin neg (.39) and repeat lactic acid downtrend and wnl (2.1-->1.4) -urology consult. 2. Urinary Tract Infection: -empiric IV Ceftriaxone blood cx neg at 24 hrs and urine cx e coli -NS at 60cc/hr>> stopped 3. Acute Kidney Injury: -likely due to intravascular depletion -fluids given, then discontinued 4. Microcytic Anemia: -anemia of chronic disease, Fe 12, tibc 254, %sat 5,and ferritin 116. -feosol 324 mg tid po 5. Hypertension: -losartan 100 daily 6. Coronary Artery Disease (s/p CABG, pacemaker and PCI): -home maintenance meds of lipitor and ASA - losartan 100 daily 7. COPD: -continue home maintenance inhalers -PRN Duo-nebs as needed -O2 via NC as needed 8. Dyslipidemia: continue Lipitor 9. BPH: continue Flomax DVT PPx: SCDs and SC Heparin , GI PPx: Protonix DC meds: 1. albuterol inhaler prn 2. asa 81 mg po daily 3. lipitor 20 mg po hs 4. calcium citrate 630 mg po daily 5. vantin po 100 q 12 number 20 6. vitamin d 2000 daily 7. flunisolide 2 puff ih bid 8. hctz valsartan 1 tab daily 9. omega 3 daily 10. spectravite 1 tab daily 11. flomax .4 daily 12. spiriva daily 13. vitamin b daily DC instructions Please f/u with PMD. Please dc home. Please return if condition worsens. FU with urology. - Date & Time of H&P Date of H&P: 10/08/16 Time of H&P: 21:30 Discharge Exam - Head Exam Head Exam: ATRAUMATIC, NORMAL INSPECTION, NORMOCEPHALIC - Eye Exam Eye Exam: EOMI - ENT Exam ENT Exam: Mucous Membranes Moist - Neck Exam Neck exam: Full Rom, Normal Inspection - Respiratory Exam Respiratory Exam: NORMAL BREATHING PATTERN, UNREMARKABLE - Cardiovascular Exam Cardiovascular Exam: +S1, +S2 - GI/Abdominal Exam GI & Abdominal Exam: Normal Bowel Sounds - Extremities Exam Extremities exam: full ROM, normal inspection - Neurological Exam Neurological exam: Alert, CN II-XII Intact, Oriented x3 - Psychiatric Exam Psychiatric exam: Normal Affect, Normal Mood - Skin Skin Exam: Dry, Intact, Normal Color, Warm Discharge Plan - Discharge Medications Prescriptions: Cefpodoxime [Vantin] 100 mg PO Q12 #20 tab - Follow Up Plan Condition: STABLE Disposition: HOME/ ROUTINE Instructions: Urinary Tract Infection in Men (DC), Sepsis (GEN) Additional Instructions: Please fill and take all medications as prescribed. Please follow up with your Primary Medical Doctor within 1 week of discharge. Please follow up with all specialists listed within the time frame instructed. Referrals: Tony Galicia MD [Primary Care Provider] - Harshil Arceo MD [Staff Provider] - <Troy Maravilla - Last Filed: 10/13/16 17:18> Provider - Provider Date of Admission: 10/08/16 19:35 Attending physician: Troy Maravilla MD Primary care physician: Tony Galicia MD Hospital Course - Lab Results Lab Results: Most Recent Lab Values WBC 7.2 10^3/ul (4.5-11.0) D 10/10/16 07:00 RBC 4.47 10^6/uL (3.5-6.1) 10/10/16 07:00 Hgb 10.7 gm/dL (14.0-18.0) L 10/10/16 07:00 Hct 31.1 % (42.0-52.0) L 10/10/16 07:00 MCV 69.6 fL (80.0-105.0) L 10/10/16 07:00 MCH 23.9 pg (25.0-35.0) L 10/10/16 07:00 MCHC 34.4 g/dl (31.0-37.0) 10/10/16 07:00 RDW 14.8 % (11.5-14.5) H 10/10/16 07:00 Plt Count 188 10^3/uL (120.0-450.0) 10/10/16 07:00 MPV 9.4 fl (7.0-11.0) 10/10/16 07:00 Gran % 75.0 % (50.0-68.0) H 10/10/16 07:00 Lymph % (Auto) 16.7 % (22.0-35.0) L 10/10/16 07:00 Smyth % (Auto) 7.5 % (1.0-6.0) H 10/10/16 07:00 Eos % (Auto) 0.7 % (1.5-5.0) L 10/10/16 07:00 Baso % (Auto) 0.1 % (0.0-3.0) 10/10/16 07:00 Gran # 5.37 (1.4-6.5) 10/10/16 07:00 Lymph # 1.2 (1.2-3.4) 10/10/16 07:00 Smyth # 0.5 (0.1-0.6) 10/10/16 07:00 Eos # 0.1 (0.0-0.7) 10/10/16 07:00 Baso # 0.01 K/mm3 (0.0-2.0) 10/10/16 07:00 pO2 39 mm/Hg (30-55) 10/08/16 20:05 VBG pH 7.40 (7.32-7.43) 10/08/16 20:05 VBG pCO2 48.0 (40-60) 10/08/16 20:05 VBG HCO3 29.7 mmol/l (21-28) H 10/08/16 20:05 VBG Total CO2 31.2 mmol.L (22-28) H 10/08/16 20:05 VBG O2 Sat (Calc) 78.3 % (40-65) H 10/08/16 20:05 VBG Base Excess 4.1 mmol/L (0.0-2.0) H 10/08/16 20:05 VBG Potassium 4.2 mmol/L (3.6-5.2) 10/08/16 20:05 Sodium 134.0 mmol/L (132-148) 10/08/16 20:05 Chloride 100.0 mmol/L (98-107) 10/08/16 20:05 Glucose 93 mg/dl (75-110) 10/08/16 20:05 Lactate 1.4 mmol/L (0.7-2.1) 10/08/16 20:05 FiO2 21.0 % 10/08/16 20:05 Sodium 132 mmol/L (132-148) 10/10/16 07:00 Potassium 4.1 mmol/L (3.6-5.0) 10/10/16 07:00 Chloride 100 mmol/L (98-107) 10/10/16 07:00 Carbon Dioxide 27 mmol/L (21-33) 10/10/16 07:00 Anion Gap 9 (10-20) L 10/10/16 07:00 BUN 21 mg/dL (7-21) 10/10/16 07:00 Creatinine 1.4 mg/dL (0.5-1.4) 10/10/16 07:00 Est GFR ( Amer) 59 10/10/16 07:00 Est GFR (Non-Af Amer) 49 10/10/16 07:00 Random Glucose 102 mg/dL (70-110) 10/10/16 07:00 Lactic Acid 1.4 mmol/L (0.7-2.1) 10/08/16 22:00 Calcium 8.8 mg/dL (8.4-10.5) 10/10/16 07:00 Phosphorus 2.7 mg/dL (2.5-4.5) 10/10/16 07:00 Magnesium 1.7 mg/dL (1.7-2.2) 10/10/16 07:00 Iron 12 ug/dL (45-180) L 10/09/16 07:54 TIBC 254 ug/dL (261-462) L 10/09/16 07:54 % Saturation 5 % (20-55) L 10/09/16 07:54 Ferritin 116.0 ng/mL 10/09/16 07:54 Total Bilirubin 0.7 mg/dL (0.2-1.3) 10/10/16 07:00 AST 40 U/L (15-59) 10/10/16 07:00 ALT 30 U/L (7-56) 10/10/16 07:00 Alkaline Phosphatase 78 U/L (38-133) 10/10/16 07:00 Total Protein 6.4 g/dL (5.8-8.3) 10/10/16 07:00 Albumin 3.2 g/dL (3.0-4.8) 10/10/16 07:00 Globulin 3.2 gm/dL 10/10/16 07:00 Albumin/Globulin Ratio 1.0 (1.1-1.8) L 10/10/16 07:00 Procalcitonin 0.39 NG/ML (0.19-0.49) 10/08/16 17:00 Venous Blood Potassium 4.2 mmol/L (3.6-5.2) 10/08/16 20:05 Urine Color Yellow (YELLOW) 10/08/16 18:15 Urine Appearance Sl cloudy (CLEAR) 10/08/16 18:15 Urine pH 7.5 (4.7-8.0) 10/08/16 18:15 Ur Specific Maidens 1.015 (1.005-1.035) 10/08/16 18:15 Urine Protein Trace mg/dL (<30 mg/dL) H 10/08/16 18:15 Urine Glucose (UA) Negative mg/dL (NEGATIVE) 10/08/16 18:15 Urine Ketones Negative mg/dL (NEGATIVE) 10/08/16 18:15 Urine Blood Large (NEGATIVE) H 10/08/16 18:15 Urine Nitrate Negative (NEGATIVE) 10/08/16 18:15 Urine Bilirubin Negative (NEGATIVE) 10/08/16 18:15 Urine Urobilinogen 0.2 E.U./dL (<1 E.U./dL) 10/08/16 18:15 Ur Leukocyte Esterase Small Tino/uL (NEGATIVE) H 10/08/16 18:15 Urine RBC Tntc /hpf (0-2) 10/08/16 18:15 Urine WBC 15 - 20 /hpf (0-6) 10/08/16 18:15 Ur Epithelial Cells 6 - 8 /hpf (0-5) 10/08/16 18:15 Urine Bacteria Mod (NEG) 10/08/16 18:15 Attending/Attestation - Attestation I have personally seen and examined this patient.: Yes I have fully participated in the care of the patient.: Yes I have reviewed all pertinent clinical information, including history, physical exam and plan: Yes Notes (Text): DISCHARGE SUMMARY FOR 10/10/16 76 year old male with past medical history of hypertension, BPH, COPD and CAD who presented with sepsis secondary to UTI. He complained of dysuria and hematuria. He was started on antibiotics with improvement of symptoms. He had mild LUIS ARMANDO which improved with fluids. He was seen by urology who ordered to d/c micky and ordered for renal ultrasound which showed simple renal cyst. UCx grew E coli. He was found to have mild microcytic iron deficiency anemia and started on iron supplements. Patient is discharged home to follow up with pmd and urologist. Continue with po antibiotics as prescribed. Recommend to repeat UA and cbc 1 week after completing antibiotics for UTI. If persistent hematuria follow up with urology. If persistent anemia without hematuria consider outpatient GI evaluation. Troy Maravilla MD Hospitalist.
== END 2016-10-10 19:03 | disposition home or self-care (01) | DRG 872 ==
LOC: ED 16:29 → ERH 19:35 → 2RNO 21:40 → 3RSO 10-09 18:50
PROVIDERS: ADMIT Internal Medicine; ATTEND Internal Medicine
DX: A41.9 Sepsis, unspecified organism (principal); N39.0 Urinary tract infection, site not specified; N17.9 Acute kidney failure, unspecified; J44.9 Chronic obstructive pulmonary disease, unspecified; N28.1 Cyst of kidney, acquired; D50.9 Iron deficiency anemia, unspecified; I10 Essential (primary) hypertension; F17.210 Nicotine dependence, cigarettes, uncomplicated; D63.8 Anemia in other chronic diseases classified elsewhere; I25.10 Atherosclerotic heart disease of native coronary artery without angina pectoris; E78.5 Hyperlipidemia, unspecified; N40.0 Benign prostatic hyperplasia without lower urinary tract symptoms; B96.20 Unspecified Escherichia coli [E. coli] as the cause of diseases classified elsewhere; Z95.0 Presence of cardiac pacemaker; Z95.5 Presence of coronary angioplasty implant and graft; Z79.82 Long term (current) use of aspirin; Z95.1 Presence of aortocoronary bypass graft

== ENCOUNTER 2018-01-25 06:06 | Day surgery (SDC) | payer MEDICARE ==
[2017-09-22 13:43] VITALS: BMI 23.3
[2018-01-25] MEDS ORDERED: Lidocaine PF 2% (5 ml) Inj (For Cardiac Arrhy) ONE (09:29)
[2018-01-25] MEDS ORDERED: Propofol 10 mg/ml Inj (20 ML) ONE (09:29)
[2018-01-25] MEDS ORDERED: Sodium Chloride 0.9% 1,000 ML IV SCH (10:15)
[2018-01-25 10:40] VITALS: O2SAT 99
[2018-01-25 11:06] VITALS: BP 148/93; PULSE 81; RESP 17; TEMP 97.7
== END 2018-01-25 11:30 | disposition home or self-care (01) ==
LOC: ENDO 06:06
PROVIDERS: ATTEND Specialist
DX: D12.3 Benign neoplasm of transverse colon (principal); D12.2 Benign neoplasm of ascending colon; D12.0 Benign neoplasm of cecum; K57.30 Diverticulosis of large intestine without perforation or abscess without bleeding; K55.20 Angiodysplasia of colon without hemorrhage; K64.8 Other hemorrhoids; K21.9 Gastro-esophageal reflux disease without esophagitis; Z86.010 Personal history of colon polyps; I25.10 Atherosclerotic heart disease of native coronary artery without angina pectoris; I10 Essential (primary) hypertension; E78.5 Hyperlipidemia, unspecified; I25.2 Old myocardial infarction; M81.0 Age-related osteoporosis without current pathological fracture; I73.9 Peripheral vascular disease, unspecified; K86.2 Cyst of pancreas; Z95.1 Presence of aortocoronary bypass graft; Z95.0 Presence of cardiac pacemaker
CPT/HCPCS: 45380; 45385; 88305; J2704; J3010; J7030

== ENCOUNTER 2018-06-15 16:39 | Outpatient (CLI) | payer MEDICARE | END 2018-06-15 16:40 | disposition home or self-care (01) | LOC: RAD 16:39 ==

== ENCOUNTER 2018-06-20 14:34 | Outpatient (CLI) | payer MEDICARE | END 2018-06-20 14:35 | disposition home or self-care (01) | LOC: RAD 14:34 ==

== ENCOUNTER 2018-07-18 14:07 | Outpatient (CLI) | payer MEDICARE | END 2018-07-18 14:08 | disposition home or self-care (01) | LOC: CARDIO 14:07 ==

== ENCOUNTER 2018-08-31 11:15 | Outpatient (CLI) | payer MEDICARE | END 2018-08-31 11:16 | disposition home or self-care (01) | LOC: LAB 11:15 ==

== ENCOUNTER 2018-09-05 09:42 | Outpatient (CLI) | payer MEDICARE | END 2018-09-05 09:43 | disposition home or self-care (01) | LOC: RAD 09:42 | DX: I73.9 Peripheral vascular disease, unspecified (principal) ==

== ENCOUNTER 2018-09-13 13:28 | Outpatient (CLI) | payer MEDICARE | END 2018-09-13 13:29 | disposition home or self-care (01) | LOC: LAB 13:28 ==

== ENCOUNTER 2018-09-24 09:01 | Outpatient (CLI) | payer MEDICARE | END 2018-09-24 09:02 | disposition home or self-care (01) | LOC: RAD 09:01 ==